=== PATIENT | female | born 1975 | race Caucasian/White ===

== ENCOUNTER 2021-04-24 08:15 | Day surgery (SDC) | payer MEDICAID ==
[~2021-04-24 08:15] MED LIST: Midazolam 1 MG/ML 2 ML SDV ONE; Propofol 200 MG/20 ML SDV ONE; fentaNYL 100 MCG/2 ML SDV ONE
[2021-04-24] MEDS ORDERED: Dextrose 5%-Lactated Ringers 1,000 ML IV SCH (09:00)
--- NOTE | 2021-05-01 12:49 | OR ---
DATE OF PROCEDURE: 04/24/2021 SURGEON: Mike Mendoza MD PREOPERATIVE DIAGNOSIS: Severe reflux related symptoms secondary to laparoscopic adjustable gastric band placement. POSTOPERATIVE DIAGNOSIS: Status post laparoscopic adjustable band placement with marked esophageal dilation and a large amount of retained food within the esophagus and pouch above the band with associated distal esophageal inflammation. OPERATIVE PROCEDURE: Esophagogastroduodenoscopy with: 1. Biopsies of antrum for CLOtest (83524). 2. Removal of foreign body (ingested food) from the esophagus and gastric pouch above the gastric band (66090). ANESTHESIA: IV sedation. INDICATION FOR PROCEDURE: The patient is roughly 1-1/2 year status post a laparoscopic adjustable gastric band placement. She has had increasing problems with severe reflux and regurgitation with episodes of waking up coughing and having severe reflux much of the day. The band has been previously deflated and the patient is to undergo upper endoscopy for evaluation. Potential risks including bleeding and perforation, aspiration of esophageal contents were reviewed and the patient wishes to proceed. DETAILS OF PROCEDURE: The patient was taken to the operating room, placed in a left lateral decubitus position, IV sedation was administered, after which the upper GI endoscope was passed orally through the length of the esophagus, through the end of the gastric band and into the stomach, with retroflexion view of the fundus, and thereafter through the pyloric channel into the junction of the third and fourth portions of the duodenum. Findings included normal hypopharynx, larynx, and upper esophageal sphincter. Entered the esophageal body, there was diffuse dilation present throughout the esophagus. This became more prominent as one went distal end of the esophagus, and within distal esophagus and gastric pouch above the band imprint there was a large amount of undigested food present. Photo documentation was obtained. This was associated with diffuse inflammation of the distal esophagus and proximal stomach. There was no mechanical obstruction, the scope easily went through the area of the band imprint without mechanical obstruction at that level. The remainder of the stomach and proximal duodenum were unremarkable. At this point, biopsies were obtained from the antrum and sent for CLOtest for H. pylori. Following this, the ingested food within the distal esophagus and upper most stomach was mobilized downward out of that area and into the more distal stomach to avoid aspiration risk postprocedure. The patient was taken to the recovery room in satisfactory condition. The patient will have a letter sent to her insurance carrier regarding prior authorization of conversion from a lap band status to Dasia-en-Y gastric bypass. Mike Mendoza MD /[id number]
== END 2021-04-24 11:35 | disposition home or self-care (01) ==
LOC: JP.SDS 08:15
PROVIDERS: ATTEND Surgery
DX: K91.89 Other postprocedural complications and disorders of digestive system (principal); K21.9 Gastro-esophageal reflux disease without esophagitis; T18.128A Food in esophagus causing other injury, initial encounter; E66.9 Obesity, unspecified; E78.5 Hyperlipidemia, unspecified; Z98.84 Bariatric surgery status; Z91.048 Other nonmedicinal substance allergy status
CPT/HCPCS: 43239; 43247; 87081; J2250; J2704; J3010; J7121

== ENCOUNTER 2021-09-04 05:23 | Inpatient (IN) | payer MEDICAID ==
[~2021-09-04 05:23] MED LIST changes: -Midazolam 1 MG/ML 2 ML SDV ONE; -Propofol 200 MG/20 ML SDV ONE; +Scopolamine 1.5 MG Transdermal Patch TOP ONE; -fentaNYL 100 MCG/2 ML SDV ONE
[2021-09-04] MEDS ORDERED: Celecoxib 200 MG Cap PO ONE (05:45)
[2021-09-04] MEDS ORDERED: Acetaminophen 500 MG Tab PO ONE (05:45)
[2021-09-04] MEDS ORDERED: Scopolamine 1.5 MG Transdermal Patch TOP SCH (05:45)
[2021-09-04] MEDS ORDERED: Dextrose 5%-Lactated Ringers 1,000 ML IV SCH (06:30)
[2021-09-04] MEDS ORDERED: Bupivacaine 0.5%/EPINEPHrine 1:200,000 50 ML MDV ONE (06:36)
[2021-09-04] MEDS ORDERED: cefOXitin 2 GM in Sodium Chloride 0.9% 50 ML IV ONE (07:15)
[2021-09-04] MEDS ORDERED: Magnesium Sulfate 3.2 GM in Sodium Chloride 0.9% 250 ML IV ONE (07:30)
[2021-09-04] MEDS ORDERED: Ketamine 17 MG in Sodium Chloride 0.9% 19.83 ML IV SCH (07:30)
[2021-09-04] MEDS ORDERED: Ropivacaine 50 ML, dexAMETHasone 8 MG, EPINEPHrine 0.4 MG, Sodium Chloride 0.9% 27.6 ML NERVRT SCH ×4 (07:30)
[2021-09-04] MEDS ORDERED: Ketamine 500 MG/5 ML MDV IV SCH (07:30)
[2021-09-04] MEDS ORDERED: Magnesium Sulfate 3 GM in Sodium Chloride 0.9% 100 ML IV SCH (07:30)
[2021-09-04] MEDS ORDERED: fentaNYL 250 MCG/5 ML SDV ONE (10:34)
[2021-09-04] MEDS ORDERED: Midazolam 1 MG/ML 2 ML SDV ONE (10:34)
[2021-09-04] MEDS ORDERED: Neostigmine Methylsulfate 1 MG/ML 5 ML Syringe ONE (10:35)
[2021-09-04] MEDS ORDERED: Ondansetron 4 MG/2 ML SDV ONE (10:35)
[2021-09-04] MEDS ORDERED: Rocuronium 50 MG/5 ML Vial ONE ×2 (10:35→12:14)
[2021-09-04] MEDS ORDERED: Glycopyrrolate 0.2 MG/ML 5 ML MDV ONE (10:35)
[2021-09-04] MEDS ORDERED: Dexamethasone 4 MG/ML SDV ONE (10:35)
[2021-09-04] MEDS ORDERED: Propofol 200 MG/20 ML SDV ONE (10:35)
[2021-09-04] MEDS: cefOXitin 2 GM Vial ONE ×2 (12:10→13:00)
[2021-09-04] MEDS ORDERED: Cyclobenzaprine 10 MG Tab PO PRN (14:53)
[2021-09-04] MEDS ORDERED: traMADol 50 MG Tab PO PRN (15:00)
[2021-09-04] MEDS ORDERED: Metoclopramide 10 MG/2 ML SDV IVPUSH PRN (15:00)
[2021-09-04] MEDS ORDERED: Calcium Gluconate 10% 1 GM/10 ML SDV IVPUSH PRN (15:00)
[2021-09-04] MEDS ORDERED: Labetalol 20 MG/4 ML Syringe IVPUSH PRN (15:00)
[2021-09-04] MEDS ORDERED: HYDROmorphone 1 MG/ML Syringe IV PRN (15:00)
[2021-09-04] MEDS ORDERED: Acetaminophen 500 MG Tab PO PRN (15:00)
[2021-09-04] MEDS ORDERED: diphenhydrAMINE 50 MG/ML SDV IVPUSH PRN (15:00)
[2021-09-04] MEDS ORDERED: Ondansetron 4 MG/2 ML SDV IVPUSH PRN (15:00)
[2021-09-04] MEDS: Dextrose 5%-Lactated Ringers 1,000 ML IV SCH (15:21)
[2021-09-04] MEDS: Acetaminophen 500 MG Tab PO SCH ×2 (15:29→23:39)
[2021-09-04] MEDS ORDERED: MVI, Adult with Vitamin K 10 ML, Thiamine 200 MG, Zinc/Copper/Manganese/Selenium 1 ML i... IV SCH ×4 (16:00)
[2021-09-04] MEDS ORDERED: Pantoprazole 40 MG Vial IVPUSH SCH (16:00)
[2021-09-04] MEDS: hydrOXYzine HCL 100 MG/2 ML SDV IM PRN (16:11)
[2021-09-04] MEDS: HYDROmorphone 0.5 MG/0.5 ML Syringe IVPUSH PRN ×2 (18:46→22:00)
[2021-09-04] MEDS: cefOXitin 2 GM in Sodium Chloride 0.9% 50 ML IV SCH (18:47)
[2021-09-04] MEDS: Heparin Sodium 5,000 Units/ML Vial SUBCUT SCH (18:48)
[2021-09-05] MEDS: cefOXitin 2 GM in Sodium Chloride 0.9% 50 ML IV SCH ×2 (00:25→05:33)
[2021-09-05] MEDS ORDERED: Iopamidol 612 MG/ML 50 ML SDV PO STA (03:33)
[2021-09-05] MEDS: HYDROmorphone 0.5 MG/0.5 ML Syringe IVPUSH PRN (04:37)
[2021-09-05] MEDS: Dextrose 5%-Lactated Ringers 1,000 ML IV SCH (04:43)
[2021-09-05] MEDS: Heparin Sodium 5,000 Units/ML Vial SUBCUT SCH ×2 (05:32→18:16)
[2021-09-05] MEDS: Acetaminophen 500 MG Tab PO SCH ×3 (08:23→23:44)
[2021-09-05] MEDS: Celecoxib 200 MG Cap PO SCH ×2 (08:24→20:39)
[2021-09-05] MEDS ORDERED: SCOPOLAMINE PATCH CHECK TOP SCH (09:00)
[2021-09-05] MEDS ORDERED: Dextrose 5%-Lactated Ringers 1,000 ML IV SCH (09:30)
[2021-09-05] MEDS ORDERED: Ondansetron 4 MG Tab.DIS PO PRN (11:19)
[2021-09-05] MEDS: hydrOXYzine HCL 100 MG/2 ML SDV IM PRN (14:17)
[2021-09-05] MEDS: oxyCODONE 5 MG Tab PO PRN ×2 (16:05→23:55)
[2021-09-06] MEDS: Heparin Sodium 5,000 Units/ML Vial SUBCUT SCH (05:48)
[2021-09-06] MEDS: oxyCODONE 5 MG Tab PO PRN (07:33)
[2021-09-06] MEDS: Acetaminophen 500 MG Tab PO SCH (07:34)
--- NOTE | 2021-09-06 08:18 | PN ---
DATE OF SERVICE: 09/05/2021 The patient is postoperative day #1 from a laparoscopic Dasia-en-Y gastric bypass and had removal along with repair of paraesophageal hernia and liver biopsy. Clinically, she has done well. Upper GI x-ray looks good. We will begin a step-2 diet today, back down the IV rate, maximize activity, and work with pulmonary toilet. Mike Mendoza MD /[id number]
[2021-09-06] MEDS ORDERED: Cyanocobalamin (Vitamin B12) 1,000 MCG/ML SDV IM ONE (09:00)
[2021-09-06] MEDS: Celecoxib 200 MG Cap PO SCH (10:10)
--- NOTE | 2021-09-06 10:45 | DISCH ---
FINAL DIAGNOSES: 1. Morbid obesity with intolerance to laparoscopic adjustable gastric band. 2. Portion of stomach ischemic after takedown of band. 3. Marked hepatomegaly. 4. Paraesophageal diaphragmatic hernia. SECONDARY ADDITIONAL DIAGNOSES: 1. History of hyperlipidemia. 2. History of iron-deficiency anemia. 3. Bariatric surgery, status post lap band placement in 2009. OPERATIVE PROCEDURES: Done on 09/04, diagnostic laparoscopy with: 1. Removal of laparoscopic adjustable gastric band system. 2. Formation of Dasia-en-Y gastric bypass with long limb gastroenterostomy. 3. Partial gastrectomy. 4. Needle liver biopsy. 5. Repair of paraesophageal diaphragmatic hernia. SUMMARY: This is a 45-year-old status post a laparoscopic adjustable gastric band placement in 2009 and subsequently had a slippage and was repaired and now has problems with intolerance to the band in terms of large amount of heartburn, esophageal dilation, and weight regain. Given this, the patient underwent removal of the band and subsequently converted to Dasia-en-Y gastric bypass. This appears to be generally uneventful. The patient did have some ischemic stomach after takedown of the band which was resected and paraesophageal hernia repair. The liver was somewhat enlarged and per usual routine, needle liver biopsies were obtained from the left lobe of the liver. Postoperatively, the patient has had no significant problems. She is tolerating a step 2 diet and will be discharged home on it. We will have her continue the omeprazole at 40 mg a day until she is off the Celebrex, and otherwise ferrous sulfate she will hold until after first appointment along with the other supplements and vitamins. MEDICATIONS ON DISCHARGE: Include Tylenol 1 g q.i.d. p.r.n.; Celebrex 200 mg b.i.d. x5 days then p.r.n.; and then oxycodone 5 mg p.o. q.6 hours p.r.n. pain, #12. FOLLOWUP: With Claudia Pires in [facility] on 09/14/2021. /[id number]
--- NOTE | 2021-09-06 10:48 | OR ---
DATE OF PROCEDURE: 09/04/2021 SURGEON: Mike Mendoza MD PREOPERATIVE DIAGNOSIS: Morbid obesity associated with intolerance to laparoscopic adjustable gastric band. POSTOPERATIVE DIAGNOSES: 1. Morbid obesity associated with intolerance to laparoscopic adjustable gastric band. 2. Marked hepatomegaly. 3. Paraesophageal diaphragmatic hernia. 4. Portion of bypassed stomach rendered ischemic, status post takedown of laparoscopic adjustable gastric band. OPERATIVE PROCEDURES: Diagnostic laparoscopy with: 1. Removal of laparoscopic adjustable gastric band system (74921). 2. Formation of Dasia-en-Y gastric bypass with long limb gastroenterostomy (85953). 3. Partial gastrectomy (73668). 4. Repair of paraesophageal diaphragmatic hernia (02697). 5. Chino-Cut needle liver biopsy (80188). ANESTHESIA: General. BOOSTER PUMP OPERATOR: Claudia Pires PA-C INDICATIONS FOR PROCEDURE: This is a 45-year-old presenting with persistent and worsening morbid obesity and progressive intolerance to laparoscopic adjustable gastric band. Plan is to remove the band system and convert to Dasia-en-Y gastric bypass status. Potential risks including bleeding, infection, leaks from various GI tract closures, problems with bowel obstruction over time as well as possibility of cardiopulmonary, septic, or hemorrhagic complications leading to were all discussed, and the patient wishes to proceed. DETAILS OF PROCEDURE: The patient was taken to the operating room and placed in a supine position. After general endotracheal anesthesia was induced, she was converted to a lithotomy position and the abdomen prepped and draped. Delgadillo catheter was inserted, which was removed at the end of the procedure. 15 cm inferior, 5 cm left of the xiphoid process, a transverse incision was made and the peritoneal cavity entered under direct vision with an Optiview trocar, inflated to 15 mmHg pressure with CO2. Laparoscope was reinserted. No underlying trocar insertion site injuries were seen. Following this, bilateral transversus abdominis plane blocks were placed and 5 additional trocars were placed across the upper and mid abdomen. Portion of the port tubing was then removed so as not to be impairing visualization during remainder of the intraabdominal phase of the case. This being divided proximally and distally. One end included the joint of the port tubing so as to avoid having that dislodged during subsequent removal of the port. At this point, the patient was noted to have a marked hepatomegaly with liver volume being roughly 2 to 3 times normal and thus Chino-Cut needle biopsy was obtained from left lobe of the liver. Minimal bleeding from the biopsy sites was controlled with electrocautery. The omentum was then retracted superiorly and divided at the level of the transverse colon. This allowed identification of the small bowel to the ligament of Treitz. Small bowel was then traced out 125 cm distal to that point, where it was divided transversely with a TUAN stapler. Small bowel was then traced out additional 175 cm where the [id number] enteroenterostomy was accomplished with an internal firing of the Endo-TUAN 60 mm stapler. Common opening was then closed transversely with the same stapler and angles anastomosed and mesenteric defect approximated with some 0 Ethibond stitch along with 4 mL of fibrin sealant. The divided end of the Dasia limb was then from the mesentery for a few centimeters, which allowed an antecolic position of the Dasia limb up to the level of the gastroesophageal junction without tension. The liver was then retracted anteriorly. The patient was noted to have some adhesions between the liver and the upper stomach and gastroesophageal junction area along with the band. These were taken down with Harmonic Scalpel allowing the liver to be then retracted anteriorly. The soft tissues over the band were then freed up with a combination of electrocautery and Harmonic Scalpel dissection. Eventually, the attachments of the band were freed up enough that the band was then divided and removed from the tunnel. The band appeared to be in somewhat slipped position and somewhat lower than would be typical for the positioning of the band. Significant portion of the stomach that had been taken down from around the band was at this point deserosalized and poorly vascularized and this was excised with firings of TUAN black loads. At this point, the patient was able to be dissected at a point above the band imprint of the peritoneum on each side of the junction of the esophagus and right and left crura were then divided with Harmonic Scalpel. This allowed eventual dissection behind the area just distal to the esophagogastric junction and this was then divided with the TUAN black loads. Upon completion of the pouch formation, both staple lines appeared to be intact. The patient was during the course of the dissection noted to have a paraesophageal hernia with prolapse of a portion of the stomach posteriorly along the length of the esophagus. This had been reduced during the above dissection and this diaphragmatic hernia was then repaired posteriorly with some 0 Ethibond sutures. The anvil of a 25 mm EEA stapler was attached to Mary Alice sump type tube. The latter was brought down through the mouth and taken out through the most dependent portion of the gastric pouch allowing the anvil likewise to be pulled down to within the gastric pouch. Main body of the EEA stapler was then passed through an opening into the end of the Dasia limb, brought up to the anvil and united with it thus creating the gastrojejunostomy. Upon removal of the stapler, double donuts of mucosa were noted within it. Small bowel was closed off with a vascular staple line. Gastrojejunostomy was then reinforced with some 3-0 Vicryl seromuscular stitch along with fibrin sealant. Omentum was then placed over the area. Anesthesia then passed an orogastric tube down into the gastric pouch and submerged in the antibiotic containing saline solution. No leaks or other problems were noted. A Arley-Yee drain was then taken out through the left lateral trocar site and then positioned adjacent to the gastrojejunostomy from there up into the splenic fossa. Trocars were removed and the peritoneal cavity deflated and incision was closed with some 4- 0 Vicryl skin stitch, which was also used to fix the drain. The port was then removed by extending an incision which was in the right mid abdomen slightly over the port. This allowed dissection of the port away from the surrounding soft tissues and this along with the remaining small portion of the attached port tubing was removed. The incision was closed with 2 layers of 3-0 Vicryl stitch deep and then the other incision closed with 4-0 Vicryl skin stitch. Dressing was applied. The patient was taken to the recovery room in satisfactory condition. Physician metal forger's assistant, Claudia Pires, played an essential role in assisting in this case, helping to position the patient, retract structures as needed, as well as suturing and cutting sutures when indicated. Her presence improved patient safety and decreased operative time. Mike Mendoza MD /[id number]
--- NOTE | 2021-09-07 09:54 | CR ---
[facility] HISTORY: Postbariatric surgery FINDINGS: Patient swallowed water-soluble contrast. Upright views of the abdomen show no evidence of extravasation or obstruction. There is a surgical drain in the left upper quadrant There is some hold up in the esophagus on delayed image. This may be due to some spasm. IMPRESSION: Status post bariatric surgery No extravasation or obstruction seen
== END 2021-09-06 11:21 | disposition home or self-care (01) | DRG 620 ==
LOC: JP.SDS 05:23 → EDSTATUS 07:15 → JP.MS 13:40
PROVIDERS: ADMIT Surgery; ATTEND Surgery
PROC: 0D164ZA Bypass Stomach to Jejunum, Percutaneous Endoscopic Approach (ICD-10-PCS; principal; 2021-09-04)
PROC: 0DB64ZZ Excision of Stomach, Percutaneous Endoscopic Approach (ICD-10-PCS; 2021-09-04)
PROC: 0BQT4ZZ Repair Diaphragm, Percutaneous Endoscopic Approach (ICD-10-PCS; 2021-09-04)
PROC: 0FB24ZX Excision of Left Lobe Liver, Percutaneous Endoscopic Approach, Diagnostic (ICD-10-PCS; 2021-09-04)
DX: E66.01 Morbid (severe) obesity due to excess calories (principal); K91.71 Accidental puncture and laceration of a digestive system organ or structure during a digestive system procedure; R16.0 Hepatomegaly, not elsewhere classified; K44.9 Diaphragmatic hernia without obstruction or gangrene; I99.8 Other disorder of circulatory system; Y83.9 Surgical procedure, unspecified as the cause of abnormal reaction of the patient, or of later complication, without mention of misadventure at the time of the procedure; Z68.41 Body mass index [BMI] 40.0-44.9, adult
CPT/HCPCS: 36415; 74240; 74240-26; 82728; 82947; 86850; 86900; 86901; 86902; 86920; 86922; 94762; A9270-GY; C9113; J0171; J0694; J1100; J1170; J1644; J2250; J2405; J2704; J2710; J2765; J2795; J3010; J3410; J3411; J3420; J3475; J3490; J7030; J7050; J7121; Q9967